=== PATIENT | male | born 1990 | race Hispanic/Latino ===

== ENCOUNTER 2024-09-05 10:41 | Emergency (ER) | payer SELFPAY ==
[2024-09-05] MEDS ORDERED: LIDOCAINE 2% W/EPI 1:200,000 MPF 20 ML VIAL IM ONE (13:58)
[2024-09-05] MEDS ORDERED: TDAP (DIPHTH,PERTUSS(ACELL),TET VAC) 0.5 ML VIAL IMVAC ONE (13:58)
--- NOTE | 2024-09-05 14:29 | ER ---
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 Laceration to bottom of foot noted, bleeding controlled. Pain 6/10. Coronavirus screen: Vaccine status: Patient reports receiving the 2nd dose of the covid vaccine. Ebola Screen: No symptoms or risks identified at this time. Complicating Factors: in the [place] when foot was cut by unknown object. Initial Sepsis Screen: Does the patient meet any 2 criteria? Yes Does the patient have a suspected source of infection? No. Patient's initial sepsis screen is negative. Risk Assessment: Do you want to hurt yourself or someone else? Patient reports no desire to harm self or others. Onset of symptoms was September 04, 2024. 11:46 Method Of Arrival: [place] [facility] 11:46 Acuity: LIZETH 4 me1 Triage Assessment: 11:48 General: Appears uncomfortable, well groomed, well developed, well nourished, Behavior me1 is calm, cooperative, appropriate for age. Pain: Complains of pain in ball of left foot Pain does not radiate. Pain currently is 6 out of 10 on a pain scale. Quality of pain is described as aching, Pain began 1 day ago. Is continuous. EENT: No signs and/or symptoms were reported regarding the EENT system. Neuro: Level of Consciousness is awake, alert, obeys commands, Oriented to person, place, time, situation, Appropriate for age. Cardiovascular: Patient's skin is warm and dry. Respiratory: Airway is patent Respiratory effort is even, unlabored, Respiratory pattern is regular, symmetrical. GI: No signs and/or symptoms were reported involving the gastrointestinal system. : No signs and/or symptoms were reported regarding the genitourinary system. Derm: Wound noted ball of left foot Wound is laceration. Musculoskeletal: Reports pain in left foot. Injury Description: Laceration sustained to ball of left foot is contaminated, not bleeding, was sustained 1 day ago. Historical: - Allergies: 11:48 No Known Allergies; me1 - Home Meds: 11:48 None [Active]; me1 - PMHx: 11:48 None; me1 - PSHx: 11:48 None; me1 - Immunization history:: Adult Immunizations. - Infectious Disease History:: Denies. - Social history:: Smoking status: Patient reports the use of cigarette tobacco products, denies chronic smoking, but will smoke occasionally. Screenin:32 [facility] ED Fall Risk Assessment (Adult) History of falling in the last 3 months, me1 including since admission No falls in past 3 months (0 pts) Confusion or Disorientation No (0 pts) Intoxicated or Sedated No (0 pts) Impaired Gait Yes (1 pt) Mobility Assist Device Used No (0 pt) Altered Elimination No (0 pt) Score/Fall Risk Level 0 - 2 = Low Risk Maintained a safe environment, Provided non-skid footwear, Hourly rounding (assess needs \T\ fall precautionary measures) done. Abuse screen: Denies threats or abuse. Nutritional screening: No deficits noted. Tuberculosis screening: No symptoms or risk factors identified. Assessment: 13:32 Reassessment: See triage assessment. me1 Vital Signs: 11:46 BP 116 / 80; Pulse 85; Resp 16; Temp 98.4; Pulse Ox 99% ; Weight 51.26 kg; Height 5 ft. me1 1 in. ; Pain 6/10; 14:40 BP 120 / 78; Pulse 82; Resp 16; Temp 98.1; Pulse Ox 100% ; me1 11:46 Body Mass Index 21.35 (51.26 kg, 154.94 cm) me1 11:46 Pain Scale: Adult me1 ED Course: 10:46 Patient arrived in ED. im 10:49 Iván Jarquin FNP-C is PHCP. dr5 10:49 Juan Diego Smith MD is Attending Physician. dr5 11:48 Triage completed. me1 11:48 Arm band placed on Patient placed in waiting room. me1 13:18 Foot Left 3 View XRAY In Process Unspecified. EDMS 13:32 Patient has correct armband on for positive identification. Bed in low position. Call ak1 light in reach. Side rails up X 1. Provided Education on: POC. Verbalized understanding.. 13:32 No provider procedures requiring assistance completed. Patient did not have IV access me during this emergency room visit. 14:03 Wound care: to laceration located on left foot and ball of left foot was cleaned with ak1 Hibiclens, soaked in Hibiclens solution, irrigated with normal saline. 14:40 Columba Castro, RN is Primary Nurse. me1 Administered Medications: 14:02 Drug: Lidocaine-Epinephrine Infiltration -1%: (1:100,000) 20 ml 20 ml Infiltration me once; to bedside {Note: Administered by LAURENT Case.} Volume: 20 ml; Route: Infiltration; 14:41 Follow up: Response: No adverse reaction; Pain is decreased me 14:02 Drug: Boostrix Tdap IM 0.5 ml IM once; as a single dose Route: IM; Site: left deltoid; [facility] 14:40 Follow up: Response: No adverse reaction ak1 Medication: 13:32 VIS not applicable for this client. [facility] Outcome: 14:29 Discharge ordered by . dr5 14:40 Discharged to home via wheelchair, ak1 14:40 Condition: stable 14:40 Discharge instructions given to patient, Instructed on discharge instructions, follow up and referral plans. medication usage, Demonstrated understanding of instructions, follow-up care, medications, Prescriptions given X 2, 14:40 Patient left the ED. 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 Laceration to bottom of foot noted, bleeding controlled. Pain /. me1
--- NOTE | 2024-09-05 14:29 | EDPHYS ---
Physician Documentation [facility] Name: Jose Webb Age: 34 yrs Sex: Male : 1990 Arrival Date: 09/05/2024 Time: 10:41 Bed 10 Private MD: JOSE Physician Juan Diego Smith HPI: 09/05 17:06 This 34 yrs old Male presents to ER via Wheelchair with complaints of dr5 Laceration To Foot. 17:06 Patient is a 34-year-old male with no past med history coming in with laceration to dr5 left foot in between 3rd and 4th toes Patient states that he was fishing yesterday in the water and cut himself on a oyster bed. Patient reports this occurred last night around 1999. Historical: - Allergies: 11:48 No Known Allergies; me1 - Home Meds: 11:48 None [Active]; me1 - PMHx: 11:48 None; me1 - PSHx: 11:48 None; me1 - Immunization history:: Adult Immunizations. - Infectious Disease History:: Denies. - Social history:: Smoking status: Patient reports the use of cigarette tobacco products, denies chronic smoking, but will smoke occasionally. ROS: 17:06 Constitutional: as per hpi dr5 Exam: 17:06 Constitutional: This is a well developed, well nourished patient who is awake, alert, dr5 and in no acute distress. Head/Face: Normocephalic, atraumatic. Eyes: Pupils equal round and reactive to light, extra-ocular motions intact. Lids and lashes normal. Conjunctiva and sclera are non-icteric and not injected. Cornea within normal limits. Periorbital areas with no swelling, redness, or edema. Chest/axilla: Normal chest wall appearance and motion. Nontender with no deformity. No lesions are appreciated. Cardiovascular: Regular rate and rhythm with a normal S1 and S2. Normal PMI, no JVD. No pulse deficits. Respiratory: Lungs have equal breath sounds bilaterally, clear to auscultation. No rales, rhonchi or wheezes noted. No increased work of breathing, no retractions or nasal flaring. Back: No spinal tenderness. No costovertebral tenderness. Full range of motion. MS/ Extremity: Pulses equal, no cyanosis. Neurovascular intact. Full, normal range of motion. Neuro: Awake and alert, GCS 15, oriented to person, place, time, and situation. Cranial nerves II-XII grossly intact. Motor strength 5/5 in all extremities. Sensory grossly intact. Cerebellar exam normal. Normal gait. 17:06 Skin: injury, laceration(s), the wound is approximately 4 cm(s), with a depth of 1.5 cm(s), of the ball of left foot, Vital Signs: 11:46 BP 116 / 80; Pulse 85; Resp 16; Temp 98.4; Pulse Ox 99% ; Weight 51.26 kg; Height 5 ft. me1 1 in. ; Pain 6/10; 14:40 BP 120 / 78; Pulse 82; Resp 16; Temp 98.1; Pulse Ox 100% ; me1 11:46 Body Mass Index 21.35 (51.26 kg, 154.94 cm) me1 11:46 Pain Scale: Adult me1 Laceration: 17:06 Wound Repair of 4cm ( 1.6in ) subcutaneous laceration to in between 3rd and 4th toes. dr5 Linear shaped.. Distal neuro/vascular/tendon intact. Anesthesia: Local anesthetic administered with 3 mls of 1% lidocaine w/ Epi. Wound prep: Extensive cleansing by nurse. Skin closed with 7 4-0 Prolene using simple sutures and sterile technique. Dressed with non-adherent dressing. Patient tolerated well. MDM: 10:49 Medical Screening Exam initiated dr5 14:30 ED course: Cash Application Clerk used on discharge Justin ([id number]).. dr5 17:06 Differential diagnosis: superficial laceration, Laceration, Fracture, Contusion. Data dr5 reviewed: vital signs, nurses notes, radiologic studies, plain films. I considered the following discharge prescriptions or medication management in the emergency department Medications were administered in the Emergency Department. See MAR. Care significantly affected by the following Social Determinants of Health: Poor access to healthcare and/or lack of insurance, Poor access to transportation, Problems related to employment. Counseling: I had a detailed discussion with the patient and/or guardian regarding the historical points, exam findings, and any diagnostic results supporting the discharge/admit diagnosis, the presence of at least one elevated blood pressure reading (>120/80) during this emergency department visit, radiology results, the need for outpatient follow up, for definitive care, a family practitioner, to return to the emergency department if symptoms worsen or persist or if there are any questions or concerns that arise at home. ED course: Stitches placed has noted above. Will have patient return in 10 to 14 days removal. Put patient on antibiotics which includes coverage for MRSA and vibrio. All questions answered with asl interpreter. Alternate Tylenol Motrin as needed for pain and fever. Tetanus injection given. PCP follow up recommended.. 09/05 11:59 Order name: Foot Left 3 View XRAY; Complete Time: 15:[address] [facility] 09/05 10:50 Order name: Dressing - Wound; Complete Time: 14:[address] [facility] 09/05 10:50 Order name: Prolene, Sutures: 4-0; Complete Time: 13:[address] [facility] 09/05 10:50 Order name: Setup Suture Tray; Complete Time: 13:56 dr5 Administered Medications: 14:02 Drug: Lidocaine-Epinephrine Infiltration -1%: (1:100,000) 20 ml 20 ml Infiltration me1 once; to bedside {Note: Administered by FNP. Manpreet} Volume: 20 ml; Route: Infiltration; 14:41 Follow up: Response: No adverse reaction; Pain is decreased me1 14:02 Drug: Boostrix Tdap IM 0.5 ml IM once; as a single dose Route: IM; Site: left deltoid; me1 14:40 Follow up: Response: No adverse reaction me1 Disposition Summary: 09/05/24 14:29 Discharge Ordered Notes: Location: Home dr5 Condition: Stable dr5 Diagnosis - Laceration without foreign body, right foot dr5 Followup: dr5 - With: Emergency Department - When: As needed - Reason: Worsening of condition Followup: dr5 - With: Private Physician - When: 10 - 14 days - Reason: Staple/Suture removal Discharge Instructions: - Discharge Summary Sheet dr5 - Laceration Care, Adult, [id number] dr5 Forms: - Medication Reconciliation Form dr5 - Antibiotic Education dr5 - Patient Portal Instructions dr5 - Leadership Thank You Letter dr5 Prescriptions: - Cephalexin 500 mg Oral Capsule - take 1 capsule ORAL route every 12 hours for 10 days; 20 capsule; Refills: 0, dr5 Product Selection Permitted - Doxycycline Hyclate 100 mg Oral Tablet - take 1 tablet ORAL route every 12 hours; 20 tablet; Refills: 0, Product dr5 Selection Permitted Addendum: 09/06/2024 19:22 Co-signature as Attending Physician, Juan Diego Smith MD I agree with the assessment and c ospina plan of care. Signatures: Dispatcher [employer] Juan Diego Aaron MD MD cha Eddleman, Michelle, RN RN me1 Iván Jarquin, REMOTE OPERATIONS PRODUCER-C REMOTE OPERATIONS PRODUCER-Cdr5
--- NOTE | 2024-09-05 14:37 | RAD REPORT ---
EXAMINATION: XR Foot Left 3 View CLINICAL INDICATION: Male, 34 years old. [facility] MAIN laceration Bed Name: [id number] TECHNIQUE: 3 view radiographs of the left foot were obtained. COMPARISON: No prior exam. FINDINGS: No evidence of fracture or dislocation. Normal alignment. No evidence of arthropathy or oth er focal bone lesion. Soft tissue swelling and irregularity along the dorsum of the foot. Mild widening of the second interdigital space on the AP view only, with punctate radiodense focus which m ay suggest some debris, although not visible on other views.. No significant degenerative changes. IMPRESSION: No acute osseous abnormalities. Soft tissue changes as above.
[2024-09-05 14:49] VITALS: BP 120/78; TEMP 98.1; O2SAT 100
== END 2024-09-05 14:40 | disposition home or self-care (01) ==
LOC: ER 10:41
DX: S91.312A Laceration without foreign body, left foot, initial encounter (principal); F17.210 Nicotine dependence, cigarettes, uncomplicated
CPT/HCPCS: 90715; 96372; 99284